=== PATIENT | male | born 1980 | race African-American/Black ===

== ENCOUNTER 2018-02-18 12:40 | Inpatient (IN) | payer SELFPAY ==
[2018-02-18] MEDS ORDERED: Acetaminophen 500 MG TAB ONE (13:32)
[2018-02-18 13:50] LABS: #Eosinphils 0.9 thou/uL (0.0-0.7); #Lymphocytes 1.3 thou/uL (1.20-3.40); #Monocytes 0.8 thou/uL (0.11-0.59); #Neutrophils 11.1 thou/uL (1.40-6.50); %Basophils 0.3 % (0.0-1.0); %Eosinophils 6.1 % (0.0-10.0); %Lymphocytes 9.2 % (21.0-51.0); %Monocytes 5.9 % (0.0-10.0); %Neutrophils 78.5 % (42.0-75.0); Hemoglobin 17.9 g/dL (14.0-18.0); Large Platelets SLIGHT; MDiff Complete? YES; Mean Corpuscular HGB CONC 32.6 g/dL (32.0-36.0); Mean Corpuscular Hemoglobin 28.6 pg (27.0-31.0); Mean Corpuscular Volume 87.7 fL (78.0-98.0); Mean Platelet Volume 12.9 fL (7.4-10.4); PLT Morphology Comment Appears Decreased; Platelet Count 107 thou/uL (130-400); RBC Distribution Width 12.3 % (11.5-14.5); RBC Morphology Normal; Red Blood Cell (RBC) Count 6.25 mill/uL (4.70-6.10); White Blood Cell (WBC) Count 14.1 thou/uL (4.8-10.8)
[2018-02-18 13:54] LABS: ALT (SGPT) 19 U/L (8-55); AST (SGOT) 19 U/L (5-34); Albumin 4.1 g/dL (3.5-5.0); Alkaline Phosphatase 100 U/L (40-150); Anion Gap 18 mmol/L (10-20); BUN (Urea Nitrogen) 11 mg/dL (8.9-20.6); Bilirubin, Total 0.5 mg/dL (0.2-1.2); Calc. Creatinine Clearance 0 mL/min (70-130); Carbon Dioxide 23 mmol/L (22-29); Chloride 98 mmol/L (98-107); Estimated GFR-MDRD 69; Glucose 458 mg/dL (70-105); Lipase 28 U/L (8-78); Potassium 4.2 mmol/L (3.5-5.1); Protein, Total 8.1 g/dL (6.0-8.3); Sodium 135 mmol/L (136-145)
[2018-02-18 14:18] LABS: Bilirubin Negative (Negative); Blood, Urine Negative (Negative); Clarity CLEAR (Clear); Glucose, Urine (Dipstick) >=1000 mg/dL (Negative); Leukocyte Negative (Negative); Nitrite Negative (Negative); Protein, Urine (Dipstick) Negative (Neg-Trace); Specific Gravity, Urine 1.027 (1.002-1.036); Urobilinogen 0.2 mg/dL (0.2-1.0); pH, Urine 7.5 (5.0-9.0)
--- NOTE | 2018-02-18 15:33 | RAD ---
CHEST 1 VIEW: HISTORY: Fever. COMPARISON: 12/31/06 and 02/05/08. FINDINGS: Cardiac silhouette is magnified by projection. Pulmonary vasculature is unremarkable. Mediastinum i s midline. No lobar consolidation or evidence of pneumothorax. IMPRESSION: No active cardiopulmonary abnormalities are demonstrated. POS: [facility]
[2018-02-18] MEDS ORDERED: Ketorolac Tromethamine 30 MG/ML VIAL ONE (16:39)
[2018-02-18] MEDS ORDERED: Piperacillin/Tazobactam 3.375 GM VIAL ONE (16:39)
[2018-02-18] MEDS ORDERED: Labetalol HCl 100 MG/20 ML VIAL ONE (16:48)
[2018-02-18] MEDS ORDERED: Ibuprofen 800 MG TAB ONE (16:48)
--- NOTE | 2018-02-18 16:49 | HP ---
PRIMARY CARE PHYSICIAN: Sandy Flowers DATE OF ADMISSION: 02/18/2018 TIME OF SERVICE: 1600 hours. CHIEF COMPLAINT: Fevers, chills, nausea, and vomiting. HISTORY OF PRESENT ILLNESS: Mr. Kendall is a 37-year-old male with history of sleep apnea on CPAP, CHF of unknown type, diabetes mellitus type 2, hypertension, asthma, and depression, who presents to the Emergency Department for a 1-day history of fevers or chills accompanied by some nausea and vomiting, headache today. Overall, he has diffuse generalized body ache. He is very sleepy and feels horrible. Workup in the emergency department showed a white count elevated at 14.1. Flu test was negative. Beta hydroxy was negative and BMP was normal except for a glucose of 458 and glucose and a creatinine at 1.40. We were subsequently called for admit. The patient is sleeping, but arousable. He quickly falls back asleep. He is hurting all over. He may have gotten something per Medicaid for pain, but the patient is sleeping, falls back to sleep very fast. No other current complaints. PAST MEDICAL HISTORY: 1. Obstructive sleep apnea on CPAP. 2. Congestive heart failure, unknown type. 3. Diabetes mellitus type 2. 4. Hypertension. 5. Asthma. 6. Depression. PAST SURGICAL HISTORY: Includes sinus surgery. HOME MEDICATIONS: 1. Albuterol MDI. 2. The blood pressure pill. 3. He denies taking anything currently for his diabetes. ALLERGIES: NKDA. FAMILY HISTORY: Negative for clotting or bleeding disorder. No immune dysfunction. SOCIAL HISTORY: One pack per day for several years. Social alcohol only and no IV drug use. REVIEW OF SYSTEMS: Attempted. The patient was too somnolent to be able to stay awake long and answer review of systems. PHYSICAL EXAMINATION: VITAL SIGNS: Current temperature 100.5, pulse 107, blood pressure 179/103, respiratory rate 20, satting 95% on room air. GENERAL: He is awake. He is sleeping, but arousable. He is groggy and quickly falls back asleep. He is oriented x3 and appears acutely ill. HEENT: Normocephalic, atraumatic. Pupils equal, round, react to light bilaterally. Mucous membranes are dry. No noticed no lesion or thrush. NECK: Supple. No lymphadenopathy, JVD, or thyromegaly. CARDIOVASCULAR: Normal carotid upstroke without bruits. LUNGS: Clear, no wheezes, no rales, no rhonchi. No prolonged expiratory phase. ABDOMEN: Soft, is nontender, nondistended. No masses or organomegaly with hyperactive bowel sounds present in all 4 quadrants. He has diffuse mild tenderness, but no rebound, rigidity or guarding. EXTREMITIES: No cyanosis, no clubbing, no edema. SKIN: Cool. It is a capillary refill around 3 seconds. He has no lesions. MUSCULOSKELETAL: Normal to inspection. All joints appear normal. There is no evidence of inflammation or palpable effusions. NEUROLOGIC: Cranial nerves II-XII are grossly intact. Strength is 4-5/5. He has no focal deficits, but is certainly lethargic. LABORATORY DATA: Sodium 135, potassium 4.2, chloride 98, bicarbonate 23, BUN 11 , creatinine 1.40, glucose 458, and calcium of 10.0. They are functionally within normal limits. CBC showed a white count of 20.1, hemoglobin 17.9, hematocrit of 54.8 and platelet count of 107,000. Beta hydroxybutyrate was negative. Urinalysis was clean except for ketones. BNP was of 100.8. Chest x-ray showed no acute cardiopulmonary disease. ASSESSMENT AND PLAN: 1. Nausea, vomiting, fever, and dehydration. Patient does meet sepsis criteria. We will place him on an observation, will give him IV fluids several Levaquin and Flagyl tonight. Get stool studies if he has more diarrhea and use antiemetics. 2. Diabetes mellitus type 2, diabetic diet and sliding scale insulin for now to get a better medicine list. 3. History of heart failure, unknown type. 4. Hypertension. He takes an unknown blood pressure pill. We will use p.r.n. labetalol and start him on a little bit of Norvasc tonight. 5. Asthma, on albuterol MDI. We will have nebulizer treatments available. 6. Depression. The patient was placed in observation on medical floor. We will repeat labs in the morning. PRASADD
[2018-02-18] MEDS ORDERED: Fentanyl 100 MCG/2 ML VIAL ONE (17:54)
[2018-02-18] MEDS ORDERED: Acetaminophen 1,000 MG in Premix Bag 1 BAG IVPB SCH (18:15)
[2018-02-18 18:40] LABS: Base Excess-Venous -0.4 mmol/L (0 (+/- 2.5)); Bicarbonate (HCO3v) 23.9 mmol/L (1.0-85.0); CO2 Tension (PvCO2) 37.4 mmHg (41.0-51.0); Calcium, Ionized 1.13 mmol/L (1.12-1.32); Hemoglobin - Calc 17.1 g/dL (12.0-18.0); O2 Tension (PvO2) 64.3 mmHg (35.0-45.0); Potassium 3.3 mmol/L (3.4-4.7); pH (Venous) 7.413 (7.35-7.45); vO2 Saturation-calc 92.6 % (94-98)
--- NOTE | 2018-02-18 18:51 | ULT ---
VENOUS DUPLEX SONOGRAM RIGHT LOWER EXTREMITY: History: Right leg pain and edema. FINDINGS: The right common femoral vein and greater saphenous junction were evaluated along with the femoral, d eep femoral, popliteal, and posterior tibial veins. There is good color and spectral doppler flow, co mpression, and augmentation. IMPRESSION: No sonographic evidence of DVT within the right lower extremity. POS: [facility]
[2018-02-18] MEDS ORDERED: Acetaminophen 325 MG TAB PO PRN (19:15)
[2018-02-18] MEDS ORDERED: Acetaminophen 650 MG Suppository PR PRN (19:15)
[2018-02-18] MEDS ORDERED: Labetalol HCl 100 MG/20 ML VIAL SLOW IVP PRN (19:15)
[2018-02-18] MEDS ORDERED: Ondansetron HCl/PF 4 MG/2 ML Vial IVP PRN (19:15)
[2018-02-18] MEDS ORDERED: Dextrose 50% Abboject 50 ML SYRINGE SLOW IVP PRN (19:15)
[2018-02-18] MEDS ORDERED: Ondansetron ODT 4 MG TAB PO PRN (19:15)
[2018-02-18] MEDS ORDERED: Albuterol Sulfate 2.5 mg/3 ml Neb NEB PRN (19:15)
[2018-02-18] MEDS ORDERED: HYDROcodone/Acetaminophen 5/325 mg Tablet PO PRN ×2 (19:15)
[2018-02-18] MEDS ORDERED: Dextrose 5% in Water 1,000 ML IV PRN (19:15)
[2018-02-18 19:20] VITALS: BMI 37.6
[2018-02-18] MEDS: Famotidine/PF 20 mg/2ml Vial SLOW IVP SCH (20:33)
[2018-02-18] MEDS: HumaLOG 300 UNITS/3 ML VIAL SC PRN (20:33)
[2018-02-18] MEDS: Sodium Chloride 0.9% 1,000 ML IV SCH (20:33)
[2018-02-19] MEDS: Sodium Chloride 0.9% 1,000 ML IV SCH ×2 (03:14→10:55)
[2018-02-19] MEDS: HumaLOG 300 UNITS/3 ML VIAL SC PRN ×4 (04:40→20:07)
[2018-02-19 05:18] LABS: #Basophils 0.1 thou/uL (0.0-0.2); #Eosinphils 0.3 thou/uL (0.0-0.7); #Lymphocytes 1.1 thou/uL (1.20-3.40); #Neutrophils 11.6 thou/uL (1.40-6.50); %Basophils 0.4 % (0.0-1.0); %Eosinophils 2.3 % (0.0-10.0); %Lymphocytes 7.8 % (21.0-51.0); %Monocytes 6.8 % (0.0-10.0); %Neutrophils 82.7 % (42.0-75.0); Hemoglobin 14.7 g/dL (14.0-18.0); Mean Corpuscular HGB CONC 33.5 g/dL (32.0-36.0); Mean Corpuscular Hemoglobin 29.5 pg (27.0-31.0); Mean Corpuscular Volume 87.9 fL (78.0-98.0); Mean Platelet Volume 12.7 fL (7.4-10.4); Platelet Count 92 thou/uL (130-400); RBC Distribution Width 12.2 % (11.5-14.5); Red Blood Cell (RBC) Count 4.98 mill/uL (4.70-6.10)
[2018-02-19 05:29] LABS: Anion Gap 13 mmol/L (10-20); BUN (Urea Nitrogen) 10 mg/dL (8.9-20.6); Calc. Creatinine Clearance 121 mL/min (70-130); Calcium 8.9 mg/dL (7.8-10.44); Carbon Dioxide 24 mmol/L (22-29); Chloride 102 mmol/L (98-107); Estimated GFR-MDRD 79; Glucose 332 mg/dL (70-105); Potassium 3.5 mmol/L (3.5-5.1); Sodium 135 mmol/L (136-145)
[2018-02-19] MEDS: Famotidine/PF 20 mg/2ml Vial SLOW IVP SCH ×2 (08:11→20:00)
[2018-02-19] MEDS ORDERED: Amlodipine 10 MG TAB PO SCH (12:30)
[2018-02-19] MEDS ORDERED: Furosemide 40 MG TAB PO SCH (12:30)
[2018-02-19] MEDS ORDERED: Albuterol Sulfate 2.5 mg/3 ml Neb NEB PRN (17:38)
--- NOTE | 2018-02-19 17:40 | PDOC.PN ---
- Subjective Encounter Start Date: 02/19/18 Encounter Start Time: 17:15 Subjective: f/u for ?sepsis, RLE cellulitis, uncontrolled DM. Still feels weak with -: RLE edema. - Objective Resuscitation Status: Resuscitation Status FULL:Full Resuscitation MAR Reviewed: Yes Vital Signs & Weight: Vital Signs (12 hours) Temp Pulse Resp BP Pulse Ox 02/19/18 17:00 98.3 F 97 18 157/93 H 97 02/19/18 11:31 98.3 F 96 20 165/108 H 96 02/19/18 08:00 98.2 F 96 20 162/96 H 96 Weight Admit Weight 233 lb 1 oz Weight 233 lb 1 oz I&O: 02/18/18 02/19/18 02/20/18 06:59 06:59 06:59 Intake Total 3772 Balance 3772 Result Diagrams: 02/19/18 04:37 02/19/18 04:37 Additional Labs: Accuchecks 02/19/18 02/19/18 02/19/18 16:59 11:30 04:28 POC Glucose 410 H 334 H 293 H 02/18/18 02/18/18 20:18 18:06 POC Glucose 388 H 330 H Microbiology 02/18/18 14:08 Nasal swab Influenza Types A,B Direct EIA - Final 02/18/18 14:55 Venous blood - Right Hand Blood Culture - Preliminary Specimen has been received and culture in progress. No Growth to date. 02/18/18 14:47 Venous blood - Right Arm Blood Culture - Preliminary Specimen has been received and culture in progress. No Growth to date. Laboratory Tests 02/18/18 02/18/18 02/18/18 13:17 13:17 13:17 WBC 14.1 H Plt Count 107 L Neutrophils % 78.5 H C-Reactive Protein B-Natriuretic Peptide 100.8 H B-Hydroxybutyrate 0.20 02/18/18 02/19/18 18:27 04:37 WBC Plt Count Neutrophils % 82.7 H C-Reactive Protein 2.54 H B-Natriuretic Peptide B-Hydroxybutyrate Radiology Reviewed by me: Yes (RLE sono - neg for DVT) Phys Exam - Physical Examination Constitutional: NAD HEENT: PERRLA, sclera anicteric, oral pharynx no lesions Neck: no nodes, no JVD, supple, full ROM diminished in bases Respiratory: no rhonchi S1, S2 Cardiovascular: RRR, no significant murmur, no rub, gallop Gastrointestinal: soft, non-tender, no distention, positive bowel sounds BLE edema R>L Musculoskeletal: pulses present Neurological: non-focal, normal sensation, moves all 4 limbs Psychiatric: normal affect, A&O x 3 Deviation from normal: + erythema of RLE from mid-del cid to ankle Skin: cap refill <2 seconds Dx/Plan (1) Cellulitis of right lower extremity Code(s): L03.115 - CELLULITIS OF RIGHT LOWER LIMB Status: Acute Comment: Suspected, continue Rocephin and Vancomycin, edema control for RLE (2) DG (acute kidney injury) Code(s): N17.9 - ACUTE KIDNEY FAILURE, UNSPECIFIED Status: Acute Comment: Avoid nephrotoxic agents and limit contrast exposure, repeat creatinine in am (3) Diabetes mellitus, type II, insulin dependent Code(s): E11.9 - TYPE 2 DIABETES MELLITUS WITHOUT COMPLICATIONS; Z79.4 - PRISON (CURRENT) USE OF INSULIN Status: Chronic Comment: Labile, resume home insulin regimen, check A1C, ISS (4) HTN (hypertension) Code(s): I10 - ESSENTIAL (PRIMARY) HYPERTENSION Status: Chronic Qualifiers: Hypertension type: essential hypertension Qualified Code(s): I10 - Essential (primary) hypertension Comment: Continue Amlodipine, may consider additional agents for more optimal control (5) Thrombocytopenia Code(s): D69.6 - THROMBOCYTOPENIA, UNSPECIFIED Status: Acute Comment: ? etiology, repeat platelet count in am, avoid NSAIDs and anticoagulants - Plan continue antibiotics, social science research assistant, out of bed/ambulate Stable overall -: Start Rocephin and Vancomycin -: Elevated RLE -: Lasix 40mg po daily -: May need to replace Norvasc due to LE edema * AM lab: BMP, CBC * Convert to inpt status
[2018-02-19] MEDS: cefTRIAXone\\ROCEPHIN 2 GM in Sodium Chloride 0.9% 100 ML IVPB SCH (18:33)
[2018-02-19] MEDS: Vancomycin HCl 1.25 GM in Sodium Chloride 0.9% 250 ML 250 ML IVPB SCH (20:00)
[2018-02-19] MEDS ORDERED: Vancomycin HCl 1 GM in Premix Bag 1 BAG IVPB SCH (21:00)
[2018-02-19] MEDS ORDERED: INSULIN ASPART SQ SCH (21:00)
[2018-02-20 04:38] LABS: Hemoglobin A1c 13.4 % (4.0-6.0)
[2018-02-20 04:51] LABS: Anion Gap 14 mmol/L (10-20); BUN (Urea Nitrogen) 10 mg/dL (8.9-20.6); Calc. Creatinine Clearance 131 mL/min (70-130); Calcium 9.1 mg/dL (7.8-10.44); Carbon Dioxide 25 mmol/L (22-29); Chloride 103 mmol/L (98-107); Estimated GFR-MDRD 87; Glucose 281 mg/dL (70-105); Potassium 3.5 mmol/L (3.5-5.1); Sodium 138 mmol/L (136-145)
[2018-02-20 05:22] LABS: Band 3 % (5-11); Eosinophils 1 % (0-10); Hemoglobin 14.8 g/dL (14.0-18.0); Lymphocytes 26 % (21-51); MDiff Complete? YES; Mean Corpuscular HGB CONC 33.9 g/dL (32.0-36.0); Mean Corpuscular Hemoglobin 29.9 pg (27.0-31.0); Monocytes 7 % (0-10); Neutrophil 63 % (42-75); PLT Morphology Comment Appears Decreased; Platelet Count 109 thou/uL (130-400); RBC Distribution Width 12.1 % (11.5-14.5); RBC Morphology Normal; Red Blood Cell (RBC) Count 4.96 mill/uL (4.70-6.10); White Blood Cell (WBC) Count 11.7 thou/uL (4.8-10.8)
[2018-02-20] MEDS: HumaLOG 300 UNITS/3 ML VIAL SC PRN ×4 (05:30→20:05)
[2018-02-20] MEDS: Famotidine/PF 20 mg/2ml Vial SLOW IVP SCH ×2 (08:34→20:04)
[2018-02-20] MEDS: Furosemide 40 MG TAB PO SCH (08:34)
[2018-02-20] MEDS: Vancomycin HCl 1.25 GM in Sodium Chloride 0.9% 250 ML 250 ML IVPB SCH ×3 (08:40→22:12)
[2018-02-20] MEDS ORDERED: INSULIN ASPART SQ SCH (09:00)
[2018-02-20] MEDS ORDERED: Amlodipine 10 MG TAB PO SCH (09:00)
--- NOTE | 2018-02-20 14:10 | PDOC.PN ---
- Subjective Encounter Start Date: 02/20/18 Encounter Start Time: 14:00 Subjective: f/u for RLE cellulitis and edema. Overall feeling better and no fever. -: Still with edema of RLE. No SOB or CP. - Objective Resuscitation Status: Resuscitation Status FULL:Full Resuscitation MAR Reviewed: Yes Vital Signs & Weight: Vital Signs (12 hours) Temp Pulse Resp BP BP BP BP 02/20/18 11:30 61 157/96 H 157/96 H 02/20/18 08:34 83 173/113 H 02/20/18 08:00 98.1 F 83 18 175/116 H 02/20/18 04:00 98.0 F 86 20 146/94 H Pulse Ox 02/20/18 11:30 02/20/18 08:34 02/20/18 08:00 98 02/20/18 04:00 96 Weight Admit Weight 233 lb 1 oz Weight 233 lb 1 oz I&O: 02/19/18 02/20/18 02/21/18 06:59 06:59 06:59 Intake Total 3772 2900 Balance 3772 2900 Result Diagrams: 02/20/18 04:21 02/20/18 04:21 Additional Labs: Accuchecks 02/20/18 02/19/18 02/19/18 04:26 19:41 16:59 POC Glucose 233 H 414 H 410 H Microbiology 02/18/18 14:08 Nasal swab Influenza Types A,B Direct EIA - Final 02/18/18 14:55 Venous blood - Right Hand Blood Culture - Preliminary Specimen has been received and culture in progress. No Growth to date. 02/18/18 14:55 Venous blood - Right Hand Blood Culture - Preliminary NO GROWTH AT 48 HOURS 02/18/18 14:47 Venous blood - Right Arm Blood Culture - Preliminary Specimen has been received and culture in progress. No Growth to date. 02/18/18 14:47 Venous blood - Right Arm Blood Culture - Preliminary NO GROWTH AT 48 HOURS Laboratory Tests 02/18/18 02/18/18 02/18/18 13:17 13:17 13:17 WBC 14.1 H Plt Count 107 L Neutrophils % 78.5 H Neutrophils % (Manual) Hemoglobin A1c C-Reactive Protein B-Natriuretic Peptide 100.8 H B-Hydroxybutyrate 0.20 02/18/18 02/19/18 02/20/18 18:27 04:37 04:21 WBC 14.0 H Plt Count 92 L Neutrophils % 82.7 H Neutrophils % (Manual) 63 Hemoglobin A1c C-Reactive Protein 2.54 H B-Natriuretic Peptide B-Hydroxybutyrate 02/20/18 04:21 WBC Plt Count Neutrophils % Neutrophils % (Manual) Hemoglobin A1c 13.4 H C-Reactive Protein B-Natriuretic Peptide B-Hydroxybutyrate Phys Exam - Physical Examination Constitutional: NAD HEENT: PERRLA, sclera anicteric, oral pharynx no lesions Neck: no nodes, no JVD, supple, full ROM Respiratory: no wheezing, no rales, no rhonchi, clear to auscultation bilateral S1, S2 Cardiovascular: RRR, no significant murmur, no rub, gallop Gastrointestinal: soft, non-tender, no distention, positive bowel sounds Bilat LE non-pitting edema Musculoskeletal: pulses present, edema present Neurological: non-focal, normal sensation, moves all 4 limbs Psychiatric: normal affect, A&O x 3 Skin: no rash, normal turgor, cap refill <2 seconds Dx/Plan (1) Cellulitis of right lower extremity Code(s): L03.115 - CELLULITIS OF RIGHT LOWER LIMB Status: Acute Comment: Suspected, continue Rocephin and Vancomycin, edema control for RLE (2) DG (acute kidney injury) Code(s): N17.9 - ACUTE KIDNEY FAILURE, UNSPECIFIED Status: Acute Comment: Avoid nephrotoxic agents and limit contrast exposure, repeat creatinine in am (3) Diabetes mellitus, type II, insulin dependent Code(s): E11.9 - TYPE 2 DIABETES MELLITUS WITHOUT COMPLICATIONS; Z79.4 - JACK OF ALL TRADES (CURRENT) USE OF INSULIN Status: Chronic Comment: Labile, resume home insulin regimen, check A1C, ISS (4) HTN (hypertension) Code(s): I10 - ESSENTIAL (PRIMARY) HYPERTENSION Status: Chronic Qualifiers: Hypertension type: essential hypertension Qualified Code(s): I10 - Essential (primary) hypertension Comment: D/c Amlodipine due to LE edema, start Metoprolol and HCTZ and monitor response (5) Thrombocytopenia Code(s): D69.6 - THROMBOCYTOPENIA, UNSPECIFIED Status: Acute Comment: ? etiology, repeat platelet count in am, avoid NSAIDs and anticoagulants - Plan continue antibiotics, PT/OT, social services specialist, out of bed/ambulate Stable overall -: D/C Amlodipine due to LE edema -: Start Metoprolol 25mg BID -: Start HCTZ 25mg Daily -: OOB/ambulate * Continue IV Vancomycin and Rocephin another 24h * AM lab: BMP, CBC
[2018-02-20] MEDS ORDERED: Metoprolol Tartrate 25 MG TAB PO SCH ×2 (14:30→15:00)
[2018-02-20] MEDS ORDERED: Hydrochlorothiazide 25 MG TAB PO SCH ×2 (14:30→15:00)
[2018-02-20] MEDS: cefTRIAXone\\ROCEPHIN 2 GM in Sodium Chloride 0.9% 100 ML IVPB SCH (17:13)
[2018-02-20] MEDS: Metoprolol Tartrate 25 MG TAB PO SCH (20:04)
[2018-02-20 20:52] LABS: Vancomycin, Trough 7.9 ug/mL
[2018-02-21 04:26] LABS: Band 1 % (5-11); Eosinophils 11 % (0-10); Hemoglobin 15.1 g/dL (14.0-18.0); Lymphocytes 37 % (21-51); MDiff Complete? YES; Mean Corpuscular HGB CONC 33.4 g/dL (32.0-36.0); Mean Corpuscular Hemoglobin 29.5 pg (27.0-31.0); Mean Corpuscular Volume 88.3 fL (78.0-98.0); Mean Platelet Volume 12.7 fL (7.4-10.4); Monocytes 7 % (0-10); Neutrophil 44 % (42-75); PLT Morphology Comment Appears Adequate; Platelet Count 124 thou/uL (130-400); RBC Distribution Width 12.1 % (11.5-14.5); Red Blood Cell (RBC) Count 5.13 mill/uL (4.70-6.10); White Blood Cell (WBC) Count 8.7 thou/uL (4.8-10.8)
[2018-02-21 04:31] LABS: Anion Gap 15 mmol/L (10-20); BUN (Urea Nitrogen) 15 mg/dL (8.9-20.6); Calc. Creatinine Clearance 117 mL/min (70-130); Calcium 9.7 mg/dL (7.8-10.44); Carbon Dioxide 25 mmol/L (22-29); Chloride 99 mmol/L (98-107); Estimated GFR-MDRD 76; Glucose 386 mg/dL (70-105); Potassium 3.5 mmol/L (3.5-5.1); Sodium 135 mmol/L (136-145)
[2018-02-21] MEDS: Vancomycin HCl 1.25 GM in Sodium Chloride 0.9% 250 ML 250 ML IVPB SCH ×2 (05:32→14:33)
[2018-02-21] MEDS: HumaLOG 300 UNITS/3 ML VIAL SC PRN ×2 (05:33→11:41)
[2018-02-21] MEDS: Furosemide 40 MG TAB PO SCH (08:25)
[2018-02-21] MEDS: Metoprolol Tartrate 25 MG TAB PO SCH (08:25)
[2018-02-21] MEDS: Famotidine/PF 20 mg/2ml Vial SLOW IVP SCH (08:26)
[2018-02-21] MEDS ORDERED: Hydrochlorothiazide 25 MG TAB PO SCH (09:00)
[2018-02-21 12:07] VITALS: BP 149/98; TEMP 98.4
[2018-02-21] MEDS ORDERED: Famotidine 20 MG TAB PO SCH (21:00)
--- NOTE | 2018-02-21 22:41 | DIS ---
DATE OF ADMISSION: 02/18/2018 DATE OF DISCHARGE: 02/21/2018 DISCHARGE DIAGNOSES: 1. Right lower extremity cellulitis, improving. 2. Acute kidney injury, resolved. 3. Diabetes mellitus, type 2, insulin requiring, labile. 4. Hypertension, labile. 5. Thrombocytopenia, chronic. CONSULTATIONS: None. PERTINENT LAB AND X-RAY FINDINGS: Creatinine ranged between 1.14-1.40. Estimated GFR ranged between 69-87. Hemoglobin A1c 13.4. Lactic acid level 2.0. CRP 2.54. BNP 101. CBC showed a white blood cell count ranging between 8.7-14.1. Beta hydroxybutyrate level 0.2. Blood cultures x2 dated 2017 showed no growth at 48 hours. Influenza A and B antigen dated 02/18/2018 negative. Portable ch est x-ray dated 02/18/2018 showed no acute cardiopulmonary process. Right lower extremity venous Dop pler study dated 02/18/2018 showed no evidence for DVT. HOSPITAL COURSE: The patient was initially admitted after presenting with fever, chills, and right l ower extremity edema with associated cellulitis. The patient with longstanding history of chronic lo wer extremity edema, likely mediated due to poorly controlled hypertension in addition to long-term u se of Norvasc. The patient was placed on IV vancomycin and Rocephin and noted with marked clinical i mprovement in 24-48 hours. The patient was given general supportive measures including IV fluids and remained clinically stable. The patient was noted with labile hypertension with initiation of metop rolol 25 mg b.i.d. in addition to hydrochlorothiazide 25 mg daily. The patient was discontinued on N orvasc due to chronic lower extremity edema. The patient may need additional titration of his antihy pertensive regimen on an ongoing basis after discharge. Overall, the patient remained clinically sta ble with overall clinical improvement. I have examined the patient at the time of discharge and disc ussed followup instructions, at which point the patient verbalized understanding and agreement. Over all, the patient clinically stable and ready for discharge on 02/21/2018. DISCHARGE MEDICATIONS: 1. Augmentin 500 mg 1 tab p.o. b.i.d. x10 days. 2. Hydrochlorothiazide 25 mg 1 tab p.o. daily. 3. Metoprolol 25 mg one tab p.o. b.i.d. 4. Ventolin nebulized solution 3 mL nebulized q.6 hours p.r.n. 5. Lasix 40 mg p.o. b.i.d. 6. NovoLog 48 units subcutaneously daily and 28 units subcutaneously at bedtime. 7. Novolin R 10 units subcutaneously b.i.d. FOLLOWUP: The patient will follow up with Ghazala Carbajal NP, at [facility] in [place], [place] within 7 days of discharge. CONDITION ON DISCHARGE: Stable. ACTIVITY: Ad tasia. DIET: Heart healthy and ADA. CODE STATUS: FULL CODE. DISPOSITION: Home on 02/21/2018.
--- NOTE | 2018-02-23 11:21 | PQF ---
[employer] Experimentalist [employer] Winform SaeTAOMINERVA BHAKTA ERIC [id number] CLINICAL DOCUMENTATION CLARIFICATION FORM: POST DISCHARGE Addendum to original discharge summary date: ____ Late entry note date: __ Please exercise your independent, professional judgment in responding to the clarification form. Clinical indicators are provided on the bottom of this form for your review Please check appropriate box(es): [ ] Sepsis due to: (Cellulitis.) Due to: [ ] Device (please specify) [ ] Implant [ ] Graft [ ] Infusion [ ] SIRS due to non-infectious process (please specify etiology) [ ] with organ dysfunction [ ] without organ dysfunction [ x ] Severe sepsis with acute organ dysfunction of: ___decreased tissue perfusion, metabolic encephalopathy, elevated lactic acid (Examples: respiratory failure, encephalopathy, acute kidney failure, other) [ ] Septic Shock [ ] Localized infection without sepsis [ ] Other diagnosis [ ] Unable to determine In addition, please specify: Present on Admission (POA): [ x ] Yes [ ] No [ ] Unable to determine For continuity of documentation, please document condition throughout progress notes and discharge summary. Thank You. CLINICAL INDICATORS - SIGNS / SYMPTOMS / LABS Fever or hypothermia (<96.8 F/36 C or > 100.4 F/38C) Metabolic acidosis Lactic Acid >2mmol/L, Patient meets sepsis criteria- H&P Follow up for F/u for ?sepsi- pn 02/19 RISK FACTORS Infection/Bacteremia Cellulitis Diabetes TREATMENTS: Initiation Sepsis Protocol IV antibiotics - broad spectrum [employer] Experimentalist [employer] Winform Viewer (This form is maintained as a part of the permanent medical record) 2014 [employer]. All Rights Reserved [email or web address] [phone] [email or web address]
== END 2018-02-21 16:18 | disposition home or self-care (01) | DRG 871 ==
LOC: ERS 12:40 → OBSVTOIN 16:37 → T4-A 16:37
PROVIDERS: ADMIT Internal Medicine Infectious Disease; ATTEND Internal Medicine Infectious Disease
DX: A41.9 Sepsis, unspecified organism (principal); G93.41 Metabolic encephalopathy; L03.115 Cellulitis of right lower limb; N17.9 Acute kidney failure, unspecified; R65.20 Severe sepsis without septic shock; I50.9 Heart failure, unspecified; I11.0 Hypertensive heart disease with heart failure; J45.909 Unspecified asthma, uncomplicated; F32.9 Major depressive disorder, single episode, unspecified; G47.33 Obstructive sleep apnea (adult) (pediatric); F17.210 Nicotine dependence, cigarettes, uncomplicated; E86.0 Dehydration; E11.65 Type 2 diabetes mellitus with hyperglycemia; D69.6 Thrombocytopenia, unspecified; Z79.4 Long term (current) use of insulin
CPT/HCPCS: 36415; 36416; 71045; 80048; 80053; 80202; 81003; 82010; 82330; 82803; 83036; 83605; 83690; 83880; 85007; 85025; 85027; 86140; 87040; 87804; 96361; 96365; 96367; 96375; A4216; J0131; J0696; J1885; J2543; J3010; J3370; J7050; S0028

== ENCOUNTER 2018-10-09 19:30 | Outpatient (CLI) | payer OTHER | END 2018-10-09 19:31 | disposition home or self-care (01) | LOC: SLEEPLAB 19:30 | PROVIDERS: ATTEND Nurse Practitioner Family | DX: G47.33 Obstructive sleep apnea (adult) (pediatric) (principal); E66.9 Obesity, unspecified; E11.9 Type 2 diabetes mellitus without complications; I10 Essential (primary) hypertension; J45.909 Unspecified asthma, uncomplicated; R53.83 Other fatigue; Z68.36 Body mass index [BMI] 36.0-36.9, adult | CPT/HCPCS: 95811 ==

== ENCOUNTER 2019-02-07 14:41 | Emergency (ER) | payer OTHER, SELFPAY ==
--- NOTE | 2019-02-07 15:23 | RAD ---
XR Chest 1 View Portable HISTORY: Dyspnea, chest pain COMPARISON: 02/28/2018 FINDINGS: The heart size appears prominent likely due to magnification. The lungs are well expanded w ithout focal areas of consolidation, pneumothorax or pleural effusions. IMPRESSION: No radiographic evidence of acute cardiopulmonary process.
[2019-02-07 15:38] LABS: #Basophils 0.1 thou/uL (0.0-0.2); #Eosinphils 0.5 thou/uL (0.0-0.7); #Lymphocytes 2.5 thou/uL (1.20-3.40); #Monocytes 0.8 thou/uL (0.11-0.59); #Neutrophils 5.2 thou/uL (1.40-6.50); %Basophils 1.1 % (0.0-1.0); %Eosinophils 5.2 % (0.0-10.0); %Lymphocytes 27.7 % (21.0-51.0); %Monocytes 8.3 % (0.0-10.0); %Neutrophils 57.8 % (42.0-75.0); Hemoglobin 15.8 g/dL (14.0-18.0); Mean Corpuscular HGB CONC 33.4 g/dL (32.0-36.0); Mean Corpuscular Hemoglobin 28.6 pg (27.0-31.0); Mean Corpuscular Volume 85.7 fL (78.0-98.0); Mean Platelet Volume 11.2 fL (7.4-10.4); Platelet Count 156 thou/uL (130-400); RBC Distribution Width 11.9 % (11.5-14.5); Red Blood Cell (RBC) Count 5.52 mill/uL (4.70-6.10); White Blood Cell (WBC) Count 9.1 thou/uL (4.8-10.8)
[2019-02-07 16:00] LABS: ALT (SGPT) 13 U/L (8-55); AST (SGOT) 13 U/L (5-34); Albumin 3.6 g/dL (3.5-5.0); Alkaline Phosphatase 61 U/L (40-150); Anion Gap 13 mmol/L (10-20); BUN (Urea Nitrogen) 17 mg/dL (8.9-20.6); Bilirubin, Total 0.4 mg/dL (0.2-1.2); Calc. Creatinine Clearance 0 mL/min (70-130); Calcium 9.4 mg/dL (7.8-10.44); Carbon Dioxide 25 mmol/L (22-29); Chloride 103 mmol/L (98-107); Estimated GFR-MDRD 85; Globulin 2.6 g/dL (2.4-3.5); Glucose 167 mg/dL (70-105); Magnesium 1.8 mg/dL (1.6-2.6); Potassium 3.6 mmol/L (3.5-5.1); Protein, Total 6.2 g/dL (6.0-8.3); Sodium 137 mmol/L (136-145)
[2019-02-07] MEDS ORDERED: hydrALAZINE 20 MG/ML VIAL ONE (16:32)
[2019-02-07] MEDS ORDERED: Furosemide 40 MG/4 ML VIAL ONE (16:32)
== END 2019-02-07 17:54 ==
LOC: ERS 14:41
DX: I11.0 Hypertensive heart disease with heart failure (principal); I50.9 Heart failure, unspecified; E11.9 Type 2 diabetes mellitus without complications; J45.909 Unspecified asthma, uncomplicated; F32.9 Major depressive disorder, single episode, unspecified; G47.00 Insomnia, unspecified; F17.210 Nicotine dependence, cigarettes, uncomplicated; Z79.899 Other long term (current) drug therapy; Z79.84 Long term (current) use of oral hypoglycemic drugs
CPT/HCPCS: 36415; 71045; 80053; 83735; 83880; 84484; 85025; 93005; 96374; 96375; J0360; J1940

== ENCOUNTER 2019-05-18 01:29 | Inpatient (IN) | payer OTHER, SELFPAY ==
[2019-05-18] MEDS ORDERED: Famotidine/PF 20 mg/2ml Vial ONE ×2 (01:37→01:39)
[2019-05-18] MEDS ORDERED: EPINEPHrine 1 MG/ML AMP ONE (01:39)
[2019-05-18 02:30] LABS: #Basophils 0.1 thou/uL (0.0-0.2); #Eosinphils 0.2 thou/uL (0.0-0.7); #Lymphocytes 4.4 thou/uL (1.20-3.40); #Monocytes 0.8 thou/uL (0.11-0.59); #Neutrophils 5.2 thou/uL (1.40-6.50); %Basophils 0.6 % (0.0-1.0); %Lymphocytes 41.6 % (21.0-51.0); %Neutrophils 48.8 % (42.0-75.0); Hemoglobin 15.6 g/dL (14.0-18.0); Mean Corpuscular HGB CONC 31.8 g/dL (32.0-36.0); Mean Corpuscular Hemoglobin 27.6 pg (27.0-31.0); Mean Corpuscular Volume 86.7 fL (78.0-98.0); Mean Platelet Volume 11.2 fL (7.4-10.4); Platelet Count 160 thou/uL (130-400); RBC Distribution Width 12.2 % (11.5-14.5); Red Blood Cell (RBC) Count 5.65 mill/uL (4.70-6.10); White Blood Cell (WBC) Count 10.6 thou/uL (4.8-10.8)
[2019-05-18 02:53] LABS: ALT (SGPT) 14 U/L (8-55); AST (SGOT) 12 U/L (5-34); Albumin 3.4 g/dL (3.5-5.0); Alkaline Phosphatase 90 U/L (40-110); Anion Gap 14 mmol/L (10-20); BUN (Urea Nitrogen) 16 mg/dL (8.9-20.6); Bilirubin, Total 0.4 mg/dL (0.2-1.2); Calc. Creatinine Clearance 0 mL/min (70-130); Calcium 8.5 mg/dL (7.8-10.44); Carbon Dioxide 25 mmol/L (22-29); Chloride 103 mmol/L (98-107); Estimated GFR-MDRD 67; Globulin 3.5 g/dL (2.4-3.5); Glucose 366 mg/dL (70-105); Potassium 3.5 mmol/L (3.5-5.1); Protein, Total 6.9 g/dL (6.0-8.3); Sodium 138 mmol/L (136-145)
[2019-05-18] MEDS ORDERED: Acetaminophen 325 MG TAB PO PRN ×2 (04:57→09:23)
[2019-05-18] MEDS ORDERED: Ondansetron PF 4 MG/2 ML Vial IVP PRN ×2 (04:57→09:23)
[2019-05-18] MEDS ORDERED: Ondansetron ODT 4 MG TAB SL PRN (04:57)
[2019-05-18 05:05] VITALS: BMI 38.7
--- NOTE | 2019-05-18 08:05 | RAD ---
EXAM: Single view of the chest HISTORY: Angioedema COMPARISON: 02/07/2019 FINDINGS: Single view of the chest shows a normal sized cardiomediastinal silhouette. There is no patrick dence of consolidation, mass, or pleural effusion. The bones are unremarkable. IMPRESSION: No evidence of acute cardiopulmonary disease
[2019-05-18] MEDS ORDERED: Guaifenesin DM 100-10/5 ML UDCUP PO PRN (09:23)
[2019-05-18] MEDS ORDERED: HumaLOG 300 UNITS/3 ML VIAL SC PRN (09:23)
[2019-05-18] MEDS ORDERED: Senokot S 8.6-50 MG TAB PO PRN (09:23)
[2019-05-18] MEDS ORDERED: Dextrose 5% in Water 1,000 ML IV PRN (09:23)
[2019-05-18] MEDS ORDERED: Bisacodyl 10 MG SUPP PR PRN (09:23)
[2019-05-18] MEDS ORDERED: Dextrose 50% Abboject 50 ML SYRINGE SLOW IVP PRN (09:23)
[2019-05-18] MEDS ORDERED: predniSONE 20 MG TAB PO SCH (09:30)
[2019-05-18] MEDS ORDERED: Insulin Glargine 20 UNITS in Pre-Filled Syringe 1 EACH SC SCH (09:45)
--- NOTE | 2019-05-18 10:04 | HP ---
REASON FOR ADMISSION: Generalized swelling with suspected angioedema. HISTORY OF PRESENTING ILLNESS: The patient gives history of taking carvedilol and Lasix last night. He went to bed and woke up around midnight with swelling of both upper extremities. He also mentions that his lips and tongue swelled up and his face was swollen. His cell mate in the [facility] alerted the authorities and the patient was brought to the ER. On arrival here, the patient was given epinephrine 0.3 mg intramuscular, Pepcid 40 mg IV push with 1 L of normal saline in the ER, and the patient was admitted to the ICU for close monitoring. Currently, he has no complaints of difficulty breathing. He is able to swallow his saliva well. He states his lip swelling and tongue swelling are coming down. No complaints of chest pain or palpitation. He does not recall having any allergies to any medications that he knows. Most of the medications that he is on, he has been taking them for more than 2 years now. No new medications have been added to his regimen. The patient is not able use his CPAP at the [facility] facility due to restrictions. PAST MEDICAL AND SURGICAL HISTORY: Obesity; history of heart failure with likely diastolic dysfunction; diabetes mellitus, type 2, which is insulin dependent; hypertension; history of asthma; and prior history of sinus surgery. CURRENT MEDICATIONS: The patient is on: 1. Norvasc 10 mg daily. 2. Aspirin 325 mg daily. 3. Humulin R sliding scale. 4. Levemir 30 units subcu q.p.m. and 10 units subcu q.a.m. 5. Metformin 500 mg twice daily. 6. Coreg 12.5 mg twice daily. 7. Lasix 80 mg daily. ALLERGIES: NO KNOWN DRUG ALLERGIES. PERSONAL HISTORY: Does not abuse alcohol or smoke. He is currently in [facility] and has no access for drugs. FAMILY HISTORY: Mother is living, she has diabetes and hypertension. Father at a young age, likely due to complications from asthma. The patient was 4 years old and does not recall the exact cause of his . He is , has 6 children, 2 girls and 4 boys; the youngest is 4 years old and eldest is 20 years. CODE STATUS: Full. REVIEW OF SYSTEMS: CONSTITUTIONAL: Negative for weight loss or gain, ability to conduct usual activities. SKIN: Negative for rash, itching. EYES: Negative for double vision, pain. ENT/MOUTH: Negative for nose bleeding, neck stiffness, pain, tenderness. CARDIOVASCULAR: Negative for palpitations, dyspnea on exertion, orthopnea. RESPIRATORY: Negative for shortness of breath, wheezing, cough, hemoptysis, fever or night sweats. GASTROINTESTINAL: Negative for poor appetite, abdominal pain, heartburn, nausea , vomiting, constipation, or diarrhea. GENITOURINARY: Negative for urgency, frequency, dysuria, nocturia. MUSCULOSKELETAL: Negative for pain, swelling. NEUROLOGIC/PSYCHIATRIC: Negative for anxiety, depression. ALLERGY/IMMUNOLOGIC: Negative for skin rash, bleeding tendency. PHYSICAL EXAMINATION: GENERAL: The patient is a 39-year-old male, who is currently not in any acute distress. VITAL SIGNS: Blood pressure 149/84, pulse 105 per minute, respiratory rate 22 per minute, temperature 97.5 degrees Fahrenheit, and saturating 100% on room air. NECK: Supple. No elevated JVD. HEENT: Eyes, extraocular muscles intact. Pupils reacting to light. Oral cavity, mucous membranes are moist. There is mild edema on the tongue and both lips, but upper lip is slightly more swollen than lower. The patient states these swellings have come down than he had them at midnight. CARDIOVASCULAR SYSTEM: S1 and S2 heard, regular rhythm. RESPIRATORY SYSTEM: Air entry 1+ bilateral. Scattered rhonchi plus no rales or wheezes. ABDOMEN: Soft. Bowel sounds heard. No tenderness, rigidity, or guarding. EXTREMITIES: Bilateral upper extremity edema, 1+ bilateral. Right lower extremity is chronically swollen for at least 10 or 12 years that he knows of. Left lower extremity, there is no edema or calf tenderness. VASCULAR SYSTEM: Peripheral pulses 1+ bilateral. No ischemic ulcerations or gangrene. CENTRAL NERVOUS SYSTEM: No gross focal motor deficits noted. The patient is alert and oriented well. PSYCHIATRIC SYSTEM: The patient's mood is euthymic. No hallucinations or delusions. IMAGING STUDIES: EKG done shows normal sinus rhythm at 75 beats per minute. There is bifascicular block with LVH seen. Chest x-ray done shows no acute cardiopulmonary abnormality. LABORATORY DATA: White count of 10, H and H 15 and 49, platelet count is 160 with 48% neutrophils, MCV is 86. BUN 16, creatinine 1.4, and serum glucose 366. Electrolytes are stable. Liver enzymes within normal limits. Albumin is 3.4. CLINICAL IMPRESSION AND PLAN: The patient was admitted to critical care unit with suspicion for angioedema and generalized edema in the upper torso area from midnight. This happened after he took his Lasix and carvedilol per patient, but he has been on those medications for at least more than 2 years now. It is unclear the exact cause of his edema. He is currently maintaining airway and swallowing saliva. The swelling of his lips and tongue is rapidly coming down. We will place him on prednisone 20 mg daily along with Benadryl 25 mg twice daily and Pepcid 20 mg twice daily. He will continue his Levemir, metformin, carvedilol, and full-dose aspirin as before. He will be closely monitored. We will add Procardia XL instead of amlodipine for now. The patient has never had cardiac workup in the past. Likely, the patient has chronic kidney disease, stage 2 to 3. We will continue to closely monitor him for another 24 hours for any rebound edema. He is currently hemodynamically stable. Job ID: [id number] [id number]
[2019-05-18] MEDS: HumaLOG 300 UNITS/3 ML VIAL SC PRN ×2 (12:29→17:16)
[2019-05-18] MEDS: diphenhydrAMINE 25 MG CAP PO SCH ×2 (16:13→20:24)
[2019-05-18] MEDS: metFORMIN 500 MG TAB PO SCH (16:13)
--- NOTE | 2019-05-18 17:50 | CON ---
DATE OF CONSULTATION: 05/18/2019 SERVICE: Pulmonary Medicine. REASON FOR CONSULTATION: ICU patient. HISTORY OF PRESENT ILLNESS: The patient is a 39-year-old male with past medical history significant for some episode of angioedema remotely. Previously, it was quite mild and he had just minimal swelling of the lips, and tongue. They regressed on his own and he did not think much of it. This happened over 5 years ago. Ultimately, he had returned to his usual state of health and never had any additional episodes of swelling until yesterday with an onset of severe lip swelling and tongue swelling. He developed increasing difficulty with breathing. He presented to the Emergency Department and was subsequently given some steroids, and anticholinergic medications. He was tucked into the ICU. The swelling has regressed significantly overnight. He denies any shortness of breath or swallowing difficulties at this time. He still has a little bit of lip swelling and fullness to the lips, but otherwise, it is returning to his usual state. He is being considered for transition to the floor. PAST MEDICAL HISTORY: 1. Morbid obesity. 2. Chronic diastolic heart failure. 3. Type 2 diabetes mellitus. 4. Hypertension. 5. Asthma. PAST SURGICAL HISTORY: Sinus surgeries. ALLERGIES: NO KNOWN DRUG ALLERGIES. MEDICATIONS: List of his inpatient medications were reviewed. No specific updates were made at this time. FAMILY HISTORY: Noncontributory. SOCIAL HISTORY: Negative for alcohol, tobacco, or illicit drug use. He is currently in custody of a penitentiary. REVIEW OF SYSTEMS: General, head, ears, eyes, nose, throat, cardiovascular, respiratory, GI, , musculoskeletal, neurologic, and skin is negative except as mentioned in the HPI. PHYSICAL EXAMINATION: VITAL SIGNS: Afebrile, pulse 95, blood pressure 150/99, respirations 15, and saturation 99% on room air. GENERAL: The patient is awake and alert, in no apparent distress. LUNGS: Wonderful air entry. There is no prolonged expiratory phase, wheezing, rhonchi, or crackles present. HEART: Normal rate, regular. ABDOMEN: Soft, nontender, and nondistended. Bowel sounds are positive. MUSCULOSKELETAL: No cyanosis or clubbing. There is 2 to 3+ pitting in the right lower extremity. There is trace to 1+ pitting in the left lower extremity. NEUROLOGIC: Grossly nonfocal. LABORATORY DATA: CBC is unremarkable. Comprehensive metabolic profile is also unremarkable. Creatinine is 1.44, which is slightly above baseline, but not far from it. IMAGING: Chest x-ray demonstrates cardiomegaly on this AP film, though there is no acute cardiopulmonary abnormality otherwise appreciated. No significant cephalization or pleural parenchymal changes are present. ASSESSMENT: 1. Angioedema, recurrent. 2. Chronic kidney disease. 3. Type 2 diabetes mellitus. DISCUSSION AND PLAN: At this point, the patient is stable from respiratory standpoint for transition out of the ICU to the medical unit. We will continue his steroids and anticholinergic medications. This is the second round of angioedema this patient has experienced. Outpatient Allergy consultation should be considered. Complement levels will be obtained in the morning. At this point, he has no further requirements for pulmonary or critical care opinion, and I will sign off. Please call with additional questions or concerns. 70 minutes have been devoted to this patient in various activities. I personally reviewed all imaging studies and laboratory data noted within this document. For fifty percent of this time, I was interacting with the patient at the bedside or coordinating care with the care team. For the remainder of the time I was immediately available to the patient in the hospital unit. Job ID: [id number] MTDD
[2019-05-18] MEDS: Carvedilol 6.25 MG TAB PO SCH (20:23)
[2019-05-18] MEDS: Famotidine 20 MG TAB PO SCH (20:24)
[2019-05-18] MEDS ORDERED: Insulin Glargine 30 UNITS in Pre-Filled Syringe 1 EACH SC SCH (21:00)
[2019-05-18] MEDS ORDERED: Non-Formulary Item 1 EACH (Carvedilol [Coreg] 12.5 MG) PO SCH (21:00)
[2019-05-19] MEDS: HumaLOG 300 UNITS/3 ML VIAL SC PRN (05:46)
[2019-05-19 05:57] LABS: #Eosinphils 0.1 thou/uL (0.0-0.7); #Lymphocytes 2.3 thou/uL (1.20-3.40); #Monocytes 1.1 thou/uL (0.11-0.59); #Neutrophils 12.4 thou/uL (1.40-6.50); %Basophils 0.2 % (0.0-1.0); %Eosinophils 0.4 % (0.0-10.0); %Lymphocytes 14.5 % (21.0-51.0); %Monocytes 6.9 % (0.0-10.0); Hemoglobin 13.8 g/dL (14.0-18.0); Mean Corpuscular HGB CONC 32.4 g/dL (32.0-36.0); Mean Corpuscular Hemoglobin 27.8 pg (27.0-31.0); Mean Corpuscular Volume 85.8 fL (78.0-98.0); Mean Platelet Volume 11.5 fL (7.4-10.4); Platelet Count 135 thou/uL (130-400); RBC Distribution Width 12.1 % (11.5-14.5); Red Blood Cell (RBC) Count 4.95 mill/uL (4.70-6.10); White Blood Cell (WBC) Count 15.9 thou/uL (4.8-10.8)
[2019-05-19 06:13] LABS: Anion Gap 12 mmol/L (10-20); BUN (Urea Nitrogen) 15 mg/dL (8.9-20.6); Calc. Creatinine Clearance 150 mL/min (70-130); Calcium 8.9 mg/dL (7.8-10.44); Carbon Dioxide 27 mmol/L (22-29); Chloride 104 mmol/L (98-107); Estimated GFR-MDRD Greater than 90; Glucose 243 mg/dL (70-105); Potassium 3.9 mmol/L (3.5-5.1); Sodium 139 mmol/L (136-145)
[2019-05-19 06:14] LABS: CRP (Inflammatory) 2.15 mg/dL (= or < 0.5); Complement-C4 22.5 mg/dL (15-53)
[2019-05-19 07:47] VITALS: BP 153/101; TEMP 97.7
[2019-05-19] MEDS ORDERED: predniSONE 20 MG TAB PO SCH (08:00)
[2019-05-19] MEDS ORDERED: Insulin Glargine 20 UNITS in Pre-Filled Syringe 1 EACH SC SCH (09:00)
[2019-05-19] MEDS ORDERED: NIFEdipine XL 30 MG TAB PO SCH (09:00)
[2019-05-19] MEDS ORDERED: Enoxaparin Sodium 40 MG/0.4 ML SYRINGE SC SCH (09:00)
[2019-05-19] MEDS ORDERED: Aspirin 325 MG TAB PO SCH (09:00)
[2019-05-19] MEDS: Carvedilol 6.25 MG TAB PO SCH (09:23)
[2019-05-19] MEDS: metFORMIN 500 MG TAB PO SCH (09:24)
[2019-05-19] MEDS: diphenhydrAMINE 25 MG CAP PO SCH (09:24)
[2019-05-19] MEDS: Famotidine 20 MG TAB PO SCH (09:24)
--- NOTE | 2019-05-20 15:01 | DIS ---
DATE OF ADMISSION: 05/18/2019 DATE OF DISCHARGE: 05/19/2019 DISCHARGE DISPOSITION: Skilled Nursing. PRIMARY DISCHARGE DIAGNOSIS: Generalized swelling with suspected angioedema. SECONDARY DISCHARGE DIAGNOSES: 1. Diabetes mellitus type 2. 2. Hypertension. 3. Obesity. 4. Asthma. 5. History of congestive heart failure with diastolic dysfunction. PROCEDURES DONE DURING HOSPITALIZATION: The patient has had chest x-ray done, which showed no acute cardiopulmonary abnormality. H and H 15 and 49, platelet count 160, MCV 86, white count of 10 with 48% neutrophils. BUN 15, creatinine 1.0. CRP 2.15. C4 complement levels were within normal limits at 22.50 mg/dL. DISCHARGE MEDICATIONS: 1. Prednisone 20 mg p.o. daily for another 3 days. 2. Pepcid 20 mg twice daily for another 10 days. 3. Benadryl 25 mg twice daily for 3 days, then daily for 3 days, and to discontinue. 4. Aspirin 325 mg p.o. daily. 5. Carvedilol 12.5 mg twice daily. 6. Metformin 500 mg p.o. twice daily. 7. Procardia XL 30 mg p.o. daily. ALLERGIES: NO KNOWN DRUG ALLERGIES. DISCHARGE PLAN: The patient to follow up with allergy/senior php developer in 2 weeks. He also needs to follow up with his primary care physician in the nursing home facility in 1 week. BRIEF COURSE DURING HOSPITALIZATION: The patient initially was brought from [facility] with complaints of generalized swelling, mainly in the upper torso, upper extremities, face, and tongue. This happened after he took carvedilol and Lasix at the nursing home facility. The patient has been on these medications for more than 2 to 3 years now. The patient was not on any new medications to his recollection. He was given epinephrine in the ER along with steroids. The patient was initially admitted to ICU to closely monitor for airway compromise. He has maintained airway with complete resolution of his edema. He was later downgraded to medical floor and was discharged back to nursing home facility. He needs to see an allergy/senior php developer in 2 weeks via his primary care physician in the nursing home facility referral. The patient has had a similar episode years ago, which was minor per patient. The C4 complement level was within normal limits. His medications were optimized during his stay. Most of his medications were continued during his stay here, and the patient has not had any untoward events towards the same. He needs to continue prednisone, Pepcid, and Benadryl as prescribed. Please note I have seen and examined the patient on the day of discharge. Job ID: [id number]
== END 2019-05-19 10:53 | DRG 916 ==
LOC: ERS 01:29 → CCU 05:03 → T4-B 15:11
PROVIDERS: ADMIT Internal Medicine; ATTEND Emergency Medicine
PROC: 3E033XZ Introduction of Vasopressor into Peripheral Vein, Percutaneous Approach (ICD-10-PCS; principal; 2019-05-18)
DX: T78.3XXA Angioneurotic edema, initial encounter (principal); I50.32 Chronic diastolic (congestive) heart failure; I13.0 Hypertensive heart and chronic kidney disease with heart failure and stage 1 through stage 4 chronic kidney disease, or unspecified chronic kidney disease; G47.30 Sleep apnea, unspecified; J45.909 Unspecified asthma, uncomplicated; F41.9 Anxiety disorder, unspecified; F32.9 Major depressive disorder, single episode, unspecified; F17.210 Nicotine dependence, cigarettes, uncomplicated; E66.01 Morbid (severe) obesity due to excess calories; E11.22 Type 2 diabetes mellitus with diabetic chronic kidney disease; N18.9 Chronic kidney disease, unspecified; Z99.89 Dependence on other enabling machines and devices; Z79.82 Long term (current) use of aspirin; Z79.4 Long term (current) use of insulin; Z79.899 Other long term (current) drug therapy; Z68.38 Body mass index [BMI] 38.0-38.9, adult
CPT/HCPCS: 36415; 36416; 71045; 80048; 80053; 85025; 85652; 86140; 86160; 93005; 94640; 96361; 96372; 96374; J0171; J1650; J1815; J7512; J7620; Q0163; S0028

== ENCOUNTER 2024-04-19 05:02 | Inpatient (IN) | payer OTHER ==
[2024-04-19] MEDS ORDERED: Acetaminophen 325 MG TAB PO PRN (11:35)
[2024-04-19] MEDS ORDERED: Ipratropium/Albuterol 3 ML NEB NEB PRN (11:43)
[2024-04-19] MEDS ORDERED: HumaLOG 300 UNITS/3 ML VIAL SC PRN ×2 (11:51)
[2024-04-19] MEDS: hydrALAZINE 25 MG TAB PO SCH (13:52)
[2024-04-19] MEDS: Furosemide 40 MG (4 mL) VIAL SLOW IVP SCH (13:52)
[2024-04-19] MEDS: Bumetanide 1 MG TAB PO SCH (17:38)
[2024-04-19] MEDS: Mometasone 100 MCG/PUFF (1 INHALER) INH SCH (18:26)
[2024-04-19] MEDS: Carvedilol 25 MG TAB PO SCH (21:09)
[2024-04-19] MEDS: Oseltamivir 75 MG CAP PO SCH (21:09)
[2024-04-19] MEDS: Sacubitril 49 MG/Valsartan 51 MG TABLET PO SCH (21:09)
[2024-04-19] MEDS: Famotidine 20 MG TAB PO SCH (21:09)
[2024-04-19] MEDS: Atorvastatin Calcium 40 MG TAB PO SCH (21:09)
[2024-04-19] MEDS: Insulin NPH Human Isophane 100 UNITS/ML (10 ML VIAL) SQ SCH (21:10)
[2024-04-19] MEDS: Insulin Lispro 100 UNIT/ML 10 ML VIAL SC PRN (21:10)
[2024-04-20 04:33] LABS: #Basophils 0.03 10x3/uL (0.0-0.2); %Basophils 0.3 % (0.0-1.0); %Eosinophils 1.4 % (0.0-10.0); %Lymphocytes 14.3 % (21.0-51.0); %Monocytes 9.5 % (0.0-10.0); %Neutrophils 74.1 % (42.0-75.0); Hematocrit 41.7 % (42.0-52.0); Hemoglobin 13.5 g/dL (14.0-18.0); Mean Corpuscular HGB CONC 32.4 g/dL (32.0-36.0); Mean Corpuscular Hemoglobin 28.1 pg (27.0-31.0); Mean Corpuscular Volume 86.9 fL (78.0-98.0); Mean Platelet Volume 13.6 fL (7.4-10.4); Platelet Count 149 10x3/uL (130-400); RBC Distribution Width 13.2 % (11.5-14.5)
[2024-04-20 04:58] LABS: Anion Gap 15 mmol/L (10-20); BUN (Urea Nitrogen) 27 mg/dL (8.9-20.6); Calc. Creatinine Clearance 121 mL/min (70-130); Calcium 8.7 mg/dL (7.8-10.44); Carbon Dioxide 21 mmol/L (22-29); Chloride 106 mmol/L (98-107); Estimated GFR 70; Glucose 306 mg/dL (70-105); Potassium 4.5 mmol/L (3.5-5.1); Sodium 137 mmol/L (136-145)
[2024-04-20] MEDS: Insulin Lispro 100 UNIT/ML 10 ML VIAL SC PRN (06:26)
[2024-04-20] MEDS: Enoxaparin 40 MG (0.4 mL) SYRINGE SC SCH (08:34)
[2024-04-20] MEDS: Spironolactone 25 MG TAB PO SCH (08:34)
[2024-04-20] MEDS: Isosorbide Mononitrate 60 MG ER.TAB PO SCH (08:34)
[2024-04-20] MEDS: Aspirin 81 mg Enteric Coated Tablet PO SCH (08:34)
[2024-04-20] MEDS: Clopidogrel Bisulfate 75 MG TAB PO SCH (08:35)
[2024-04-20] MEDS: Insulin NPH Human Isophane 100 UNITS/ML (10 ML VIAL) SQ SCH (08:35)
[2024-04-21 05:29] LABS: Anion Gap 11 mmol/L (10-20); BUN (Urea Nitrogen) 21 mg/dL (8.9-20.6); Calc. Creatinine Clearance 124 mL/min (70-130); Calcium 8.5 mg/dL (7.8-10.44); Carbon Dioxide 26 mmol/L (22-29); Chloride 106 mmol/L (98-107); Estimated GFR 73; Glucose 162 mg/dL (70-105); Potassium 3.7 mmol/L (3.5-5.1); Sodium 139 mmol/L (136-145)
[2024-04-21 05:35] LABS: #Basophils 0.04 10x3/uL (0.0-0.2); %Basophils 0.5 % (0.0-1.0); %Eosinophils 4.9 % (0.0-10.0); %Lymphocytes 30.1 % (21.0-51.0); %Monocytes 12.3 % (0.0-10.0); Hematocrit 44.3 % (42.0-52.0); Mean Corpuscular HGB CONC 31.6 g/dL (32.0-36.0); Mean Corpuscular Hemoglobin 27.7 pg (27.0-31.0); Mean Corpuscular Volume 87.7 fL (78.0-98.0); Mean Platelet Volume 13.4 fL (7.4-10.4); Platelet Count 144 10x3/uL (130-400); Red Blood Cell (RBC) Count 5.05 mill/uL (4.70-6.10)
[2024-04-21] MEDS: Senokot S 8.6-50 MG TAB PO SCH (21:08)
[2024-04-22 05:28] LABS: #Basophils 0.03 10x3/uL (0.0-0.2); %Basophils 0.4 % (0.0-1.0); %Eosinophils 5.2 % (0.0-10.0); %Lymphocytes 30.9 % (21.0-51.0); %Monocytes 11.9 % (0.0-10.0); %Neutrophils 51.1 % (42.0-75.0); Hemoglobin 14.2 g/dL (14.0-18.0); Mean Corpuscular HGB CONC 31.6 g/dL (32.0-36.0); Mean Corpuscular Hemoglobin 27.6 pg (27.0-31.0); Mean Corpuscular Volume 87.4 fL (78.0-98.0); Mean Platelet Volume 13.7 fL (7.4-10.4); Platelet Count 158 10x3/uL (130-400); Red Blood Cell (RBC) Count 5.15 mill/uL (4.70-6.10)
[2024-04-22 05:39] LABS: Anion Gap 13 mmol/L (10-20); BUN (Urea Nitrogen) 21 mg/dL (8.9-20.6); Calc. Creatinine Clearance 109 mL/min (70-130); Calcium 8.8 mg/dL (7.8-10.44); Carbon Dioxide 31 mmol/L (22-29); Chloride 102 mmol/L (98-107); Estimated GFR 64; Glucose 144 mg/dL (70-105); Potassium 3.8 mmol/L (3.5-5.1); Sodium 142 mmol/L (136-145)
[2024-04-23 05:58] LABS: #Basophils 0.03 10x3/uL (0.0-0.2); %Basophils 0.4 % (0.0-1.0); %Eosinophils 6.8 % (0.0-10.0); %Lymphocytes 28.4 % (21.0-51.0); %Monocytes 11.5 % (0.0-10.0); %Neutrophils 52.5 % (42.0-75.0); Hematocrit 43.4 % (42.0-52.0); Hemoglobin 13.9 g/dL (14.0-18.0); Mean Corpuscular Hemoglobin 27.7 pg (27.0-31.0); Mean Corpuscular Volume 86.5 fL (78.0-98.0); Platelet Count 162 10x3/uL (130-400); RBC Distribution Width 13.1 % (11.5-14.5); Red Blood Cell (RBC) Count 5.02 mill/uL (4.70-6.10)
[2024-04-23 06:26] LABS: Anion Gap 11 mmol/L (10-20); BUN (Urea Nitrogen) 18 mg/dL (8.9-20.6); Calc. Creatinine Clearance 104 mL/min (70-130); Calcium 8.6 mg/dL (7.8-10.44); Carbon Dioxide 30 mmol/L (22-29); Chloride 101 mmol/L (98-107); Estimated GFR 61; Glucose 89 mg/dL (70-105); Potassium 3.3 mmol/L (3.5-5.1); Sodium 139 mmol/L (136-145)
[2024-04-23] MEDS: Insulin NPH Human Isophane 100 UNITS/ML (10 ML VIAL) SQ SCH (21:53)
[2024-04-24 05:35] LABS: Anion Gap 16 mmol/L (10-20); BUN (Urea Nitrogen) 21 mg/dL (8.9-20.6); Calc. Creatinine Clearance 93 mL/min (70-130); Calcium 8.7 mg/dL (7.8-10.44); Carbon Dioxide 23 mmol/L (22-29); Chloride 103 mmol/L (98-107); Estimated GFR 53; Glucose 165 mg/dL (70-105); Potassium 5.5 mmol/L (3.5-5.1); Sodium 136 mmol/L (136-145)
[2024-04-24 05:50] LABS: #Basophils 0.03 10x3/uL (0.0-0.2); %Basophils 0.4 % (0.0-1.0); %Eosinophils 7.6 % (0.0-10.0); %Lymphocytes 27.9 % (21.0-51.0); %Monocytes 10.1 % (0.0-10.0); %Neutrophils 53.5 % (42.0-75.0); Hematocrit 44.5 % (42.0-52.0); Mean Corpuscular HGB CONC 31.5 g/dL (32.0-36.0); Mean Corpuscular Hemoglobin 27.5 pg (27.0-31.0); Mean Corpuscular Volume 87.3 fL (78.0-98.0); Mean Platelet Volume 13.6 fL (7.4-10.4); Platelet Count 161 10x3/uL (130-400); RBC Distribution Width 13.1 % (11.5-14.5)
[2024-04-24 06:38] VITALS: BMI 40.8
[2024-04-24] MEDS ORDERED: hydrALAZINE 20 MG/ML VIAL SLOW IVP PRN (08:05)
[2024-04-24] MEDS: Insulin NPH Human Isophane 100 UNITS/ML (10 ML VIAL) SQ SCH (09:32)
[2024-04-24 14:38] LABS: Anion Gap 13 mmol/L (10-20); BUN (Urea Nitrogen) 20 mg/dL (8.9-20.6); Calc. Creatinine Clearance 102 mL/min (70-130); Calcium 8.5 mg/dL (7.8-10.44); Carbon Dioxide 25 mmol/L (22-29); Chloride 102 mmol/L (98-107); Estimated GFR 59; Glucose 255 mg/dL (70-105); Potassium 3.7 mmol/L (3.5-5.1); Sodium 136 mmol/L (136-145)
[2024-04-24 17:51] VITALS: BP 147/84; TEMP 97.1
== END 2024-04-24 20:30 | DRG 193 ==
LOC: EEVIPCON 05:02 → IMCU/EMU 05:02 → SURG B 04-22 17:29
PROVIDERS: ADMIT Internal Medicine; ATTEND Internal Medicine
PROC: 5A09357 Assistance with Respiratory Ventilation, Less than 24 Consecutive Hours, Continuous Positive Airway Pressure (ICD-10-PCS; principal; 2024-04-23)
DX: J10.00 Influenza due to other identified influenza virus with unspecified type of pneumonia (principal); I50.23 Acute on chronic systolic (congestive) heart failure; J81.0 Acute pulmonary edema; J96.01 Acute respiratory failure with hypoxia; I5A Non-ischemic myocardial injury (non-traumatic); Z68.41 Body mass index [BMI] 40.0-44.9, adult; N17.9 Acute kidney failure, unspecified; I13.0 Hypertensive heart and chronic kidney disease with heart failure and stage 1 through stage 4 chronic kidney disease, or unspecified chronic kidney disease; I42.9 Cardiomyopathy, unspecified; Z79.82 Long term (current) use of aspirin; Z79.899 Other long term (current) drug therapy; Z79.4 Long term (current) use of insulin; J45.20 Mild intermittent asthma, uncomplicated; G47.33 Obstructive sleep apnea (adult) (pediatric); Z86.73 Personal history of transient ischemic attack (TIA), and cerebral infarction without residual deficits; Z91.010 Allergy to peanuts; Z88.1 Allergy status to other antibiotic agents; E66.01 Morbid (severe) obesity due to excess calories; E11.22 Type 2 diabetes mellitus with diabetic chronic kidney disease; E87.5 Hyperkalemia; E87.6 Hypokalemia
CPT/HCPCS: 36415; 36416; 71045; 71275; 80048; 80053; 82805; 83605; 83735; 83880; 84484; 85025; 85379; 87040; 87428; 93005; 94660; 94760; 96365; 96375; J1650; J1815; J1940; J3475; Q9967